=== PATIENT | male | born 1990 | race Caucasian/White ===

== ENCOUNTER 2021-03-05 12:18 | Emergency (ER) | payer OTHER ==
[2021-03-05] MEDS ORDERED: Diphtheria,Pertussis(Acell),Tetanus Vaccine 0.5 ML Syringe IM ONE (13:07)
[2021-03-05] MEDS ORDERED: Sulfamethoxazole/Trimethoprim 800-160 MG Tab PO ONE (13:07)
== END 2021-03-05 13:21 | disposition home or self-care (01) ==
LOC: MW.ED 12:18
DX: L03.115 Cellulitis of right lower limb (principal); Z23 Encounter for immunization
CPT/HCPCS: 90471; 90715; 99283; A9270

== ENCOUNTER 2024-12-11 07:30 | Emergency (ER) | payer SELFPAY | END 2024-12-11 08:05 | disposition home or self-care (01) | LOC: MW.ED 07:30 | DX: K02.9 Dental caries, unspecified (principal); Z79.899 Other long term (current) drug therapy | CPT/HCPCS: 99282; A9270 ==